=== PATIENT | female | born 1995 ===

== ENCOUNTER 2019-06-25 00:16 | Emergency (ER) | payer SELFPAY ==
--- NOTE | 2019-06-25 01:28 | XRay Report ---
Left knee-3 views INDICATION: knee pain. COMPARISON: None. IMPRESSION: No acute osseous or soft tissue abnormality. No significant DJD. Signer Name: Diony Figueredo MD Signed: 06/25/2019 1:24 AM Workstation Name: [id number]
--- NOTE | 2019-06-25 02:13 | Emergency Department Report ---
ED Extremity Problem HPI - General Chief complaint: Extremity Injury, Lower Stated complaint: LEFT KNEE DISLOCATED Time Seen by Provider: 06/25/19 00:43 Source: patient, EMS Mode of arrival: Stretcher Limitations: Physical Limitation - History of Present Illness Initial comments: Patient reports that she was standing still and made a quick turn and then felt a pop in her left knee. Reports hx of similar related to a knee cap dislocation. Denies trauma. MD Complaint: extremity pain -: Gradual, hour(s) Location: left, knee History of Same: Yes -: No myalgia, No arthralgia, No fever, No associated dyspnea, No associated ch est pain Radiation: none Severity scale (0 -10): 5 Quality: aching Consistency: now resolved Improves with: medication (fentanyl administered by EMS) Worsens with: other (movement) Associated Symptoms: denies other symptoms - Related Data Previous Rx's Medication Instructions Recorded Last Taken Type Ibuprofen [Motrin 600 MG tab] 600 mg PO Q6H PRN #24 tablet 06/25/19 Unknown Rx methOCARBAMOL [Robaxin TAB] 500 mg PO BID PRN #14 tab 06/25/19 Unknown Rx Allergies Allergy/AdvReac Type Severity Reaction Status Date / Time No Known Allergies Allergy Unverified 06/25/19 00:51 ED Review of Systems ROS: Stated complaint: LEFT KNEE DISLOCATED Other details as noted in HPI Other: GENERAL: No weight change, fatigue, weakness, fever, chills, or night sweats SKIN: No changes in skin or hair, no itching, no rashes, no jaundice HEAD: No trauma, headache, or visual changes EYES: No blurriness, tearing, itching, acute visual loss, conjunctival discoloration, or scleral icterus EARS: No hearing loss, tinnitus, vertigo, or earache NOSE: No rhinorrhea, stuffiness, sneezing, itching, or epistaxis MOUTH: No bleeding gums, hoarseness, sore throat, or swelling CARDIAC: No new murmur, chest pain, palpitations, dyspnea on exertion, orthopnea, PND, or edema RESPIRATORY: No shortness of breath, wheeze, cough, sputum production, hemoptysis, pneumonia, asthma, bronchitis, or emphysema GI: No change in appetite, nausea, vomiting, dysphagia, change in bowel frequency, diarrhea, constipation, bleeding, hematemesis, melena, hematochezia, or abdominal pain URINARY: No frequency, urgency, polyuria, dysuria, hematuria, or incontinence MUSCULOSKELETAL: Left knee pain. No muscle weakness, joint stiffness, redness, swelling NEUROLOGIC: No loss of sensation, numbness, tingling, tremors, weakness, paralysis, seizures HEMATOLOGIC: No anemia, easy bruising, bleeding, petechiae, or purpura ENDOCRINE: No hot or cold intolerance, sweating, polyuria, polydipsia or, polyphagia no thyroid problems PSYCHIATRIC: No change in mood, no anxiety, no depression ED Past Medical Hx - Past Medical History Previous Medical History?: Yes Hx Psychiatric Treatment: Yes (bulemia) Additional medical history: recurrent left knee dislocations - Surgical History Past Surgical History?: No - Social History Smoking Status: Never Smoker Substance Use Type: None - Medications Home Medications: Home Medications Medication Instructions Recorded Confirmed Last Taken Type Ibuprofen [Motrin 600 MG tab] 600 mg PO Q6H PRN #24 tablet 06/25/19 Unknown Rx methOCARBAMOL [Robaxin TAB] 500 mg PO BID PRN #14 tab 06/25/19 Unknown Rx ED Physical Exam - General Limitations: Physical Limitation - Other Other exam information: GENERAL: Patient in no acute distress HEAD: Normocephalic, atraumatic HEART: pulses are symmetric LUNGS: no respiratory distress MUSCULOSKELETAL: Normal joint range of motion, no redness, no swelling, no tenderness NEUROLOGIC: GCS 15, Alert and Oriented x3, Cranial nerves intact, normal sensation, normal strength, no cerebellar deficit SKIN: Skin is warm and dry, no wounds, no rashes ED Course Vital Signs 06/25/19 06/25/19 06/25/19 00:38 01:50 03:25 Temperature 98.6 F Pulse Rate 112 H 90 Respiratory 16 17 19 Rate Blood Pressure 144/78 Blood Pressure 129/70 [Left] O2 Sat by Pulse 99 100 Oximetry ED Medical Decision Making - Radiology Data Radiology results: report reviewed - Medical Decision Making Patient comfortable. Plan discharge with outpatient follow up. Return if any worsening. Critical care attestation.: If time is entered above; I have spent that time in minutes in the direct care of this critically ill patient, excluding procedure time. ED Disposition Clinical Impression: Left knee pain Qualifiers: Chronicity: unspecified Qualified Code(s): M25.562 - Pain in left knee Disposition: - TO HOME OR SELFCARE Is pt being admited?: No Condition: Stable Instructions: Knee Sprain (ED) Prescriptions: Ibuprofen [Motrin 600 MG tab] 600 mg PO Q6H PRN #24 tablet PRN Reason: Pain methOCARBAMOL [Robaxin TAB] 500 mg PO BID PRN #14 tab PRN Reason: Spasms Referrals: [facility] [Outside] - 2-3 Days MAGGY GALLARDO MD [Staff Physician] - 2-3 Days Time of Disposition: 02:13
[2019-06-25 03:45] VITALS: BP 129/70
== END 2019-06-25 03:25 | disposition home or self-care (01) ==
LOC: ED 00:16
DX: M25.562 Pain in left knee (principal); Z79.899 Other long term (current) drug therapy; X50.3XXA Overexertion from repetitive movements, initial encounter; Y93.89 Activity, other specified; Y92.89 Other specified places as the place of occurrence of the external cause; Y99.8 Other external cause status
CPT/HCPCS: 99284